=== PATIENT | female | born 1990 | race Caucasian/White ===

== ENCOUNTER → 2022-03-29 13:47 | Outpatient (REF) | payer BC, SELFPAY | LOC: ANHLAB 13:47 | PROVIDERS: PCP Internal Medicine; Visit Provider Surgery Plastic and Reconstructive Surgery | DX: D22.0 Melanocytic nevi of lip (principal); D22.5 Melanocytic nevi of trunk; D22.4 Melanocytic nevi of scalp and neck | CPT/HCPCS: 88305 ==

== ENCOUNTER 2025-04-11 13:09 | Inpatient (IN) | payer OTHER, SELFPAY ==
[2025-04-11] VITALS (75 sets, daily range): BP systolic 88–152; BP diastolic 44–120; PULSE 70–191; RESP 18; TEMP 36.3–36.6; O2SAT 73–100; BMI 41.1
--- OUTSIDE RECORDS SUMMARY | 2025-04-11 15:24 | XMS_ITS | Clinical Summary ---
Author Organization [facility] [employer] Address [address] [place] [address] Care Team Providers Care Leadlighter Name Role Phone Arcadio Espinoza MD Primary Care Provi [facility] Source Comments [facility] [employer]non-owned Affiliates and Associated Physician Practices is amultiple site organization consisting of ambulatory clinics and hospital sitesin [place], [place], [place] and [place]. This disclosure is being madepursuant to the Care Everywhere program and may not contain all information available regarding this patient. Last updated 18.[facility] [employer] Allergies No known active allergies Medications * Be aware that medications may not be up to date on this document. Alwaysverify current medications with the patient. Vit-DSS-Fe Fum-FA ( vitamin with iron) tabletIndicati ons: Take 1 (one) tablet by mouth once daily Reasons: Active levothyroxine (Synthroid) 50 MCG tabletIndicati ons:Hypothyroi dism Take 1 (one) tablet by mouth daily before breakfast Reasons: Underactive Thyroid Active metoclopramide (Reglan) 10 MG tablet Take 1 (one) tablet by mouth as needed for Nausea/Vomiting Activ e sertraline (Zoloft) 100 MG tabletIndicati ons:Generalize d Anxiety Disorder Take 1 (one) tablet by mouth once daily Reasons: Generalized Anxiety Disorder Active liothyronine (Cytomel) 5 MCG tabletIndicati ons:Hypothyroi dism Take 1 (one) tablet by mouth once daily Reasons: Underactive Thyroid Active famotidine (Pepcid) 40 MG tabletIndicati ons:Gastroesop hageal Reflux Disease Take 1 (one) tablet by mouth once daily Reasons: Gastroesophageal Reflux Disease Active calcium carbonate (Tums) 500 MG chew tabletIndicati ons:Heartburn Take 2 (two) tablets by mouth daily with food Reasons: Heartburn Active Active Problems Problem Noted Date Diagnosed Date Advanced maternal age in multigravida, first tri mester 10/14/2024 BMI 33.0-33.9,adult 10/14/2024 Obesity affecting in first trimester 1 12/15/2023 Thyroid disease during in first trimes ter 10/14/2024 Estimated Date of Delivery Comme nts Yes 04/26/2025 Based on last me nstrual period of 07/20/2024 Encounters Date Type Department Care Team Description 01/13/2025 1:38 PM CDT - 01/13/2025 11:59 PM CDT Hospital Encounter [facility] [address] [place] [address] Jade Suggs MD Discharge Disposition: Home or Self Care from Last 3 Months Social History Tobacco Use Types Packs/Day Years Used Date Smoking Tobacco: Never Assessed Estimated Date of Delivery Comme nts Yes 04/26/2025 Based on last me nstrual period of 07/20/2024 Sex and Gender Information Value Date Recorded Sex Assigned at Not on file Legal Sex Female 12:04 PM CDT Gender Identity Not on file Sexual Orientation Not on file Last Filed Vital Signs Vital Sign Reading Time Taken Comments Blood Pressure 124/66 01/13/2025 2:20 PM CDT Pulse 89 01/13/2025 2:20 PM CDT Temperature 36.6 C (97.8 F) 06/24/2014 5:40 PM CDT Respiratory Rate 16 06/24/2014 5:40 PM CDT Oxygen Saturation 100% 06/24/2014 5:40 PM CDT Inhaled Oxygen Concentration - - Weight 107.5 kg (237 lb) 01/13/2025 2:20 PM CDT Height 165.1 cm (5' 5) 12/09/2024 1:39 PM FOREST OFFICER Body Mass Index 39.44 12/09/2024 1:39 PM FOREST OFFICER Plan of Treatment Health Maintenance Due Date Last Done Comments PAP SMEAR 1988 HIV SCREENING 2003 HEPATITIS C SCREENING 11/16/2006 DTAP/TDAP/TD VACCINES (1 - Tdap) 2007 HEPATITIS B VACCINE (1 of 3 - 19+ 3-dose series) 2007 COVID-19 VACCINE ( - season) 2024 DEPRESSION SCREENING 11/04/2024 OB-ONE HOUR GLUCOSE 01/18/2025 OB-TDAP CURRENT 01/25/2025 06/10/2012 OB-RHOGAM INJECTION 02/01/2025 OB-GROUP B STREP SCREEN 03/22/2025 INFLUENZA VACCINE (Season Ended) 2025 08/04/2020, 08/04/2019, 08/04/2018, Additional history exists ZOSTER VACCINE (1 of 2) 2038 HIB VACCINE Aged Out No longer eligi ble based on patient's age to complete this topic HPV VACCINE Aged Out No longer eligi ble based on patient's age to complete this topic MENINGOCOCCAL (Group B) VACCINE SHARED DECISION-MAKING Aged Out No longer eligible based on patient's age to complete this topic MENINGOCOCCAL GROUPS A/C/Y/W VACCINE Aged Out No longer eligible based on patient's age to complete this topic PNEUMOCOCCAL VACCINE Aged Out No long er eligible based on patient's age to complete this topic Respiratory Syncytial Virus (RSV) Vaccine Pt: or over 60 yrs (No Doses Required) Completed Procedures Procedure Name Priority Date/Time Associated Diagnosis Comments SONOGRAM - COMPLETE Routine 01/13/2025 2:33 PM CDT Subclinical hypothyroidism Antepartum multigravida of advanced maternal age Anxiety 25 weeks gestation of from Last 3 Months Results * SONOGRAM - COMPLETE (01/13/2025 2:33 PM CDT) Linked Results Indication ======== Incomplete Anatomy Screen AMA 36, Hypothyroidism, Obesity class I, Anxiety History ====== OB History 2. Para 1 [id number] 1. live 2018. Gest. age 39 w + 0 d. Weight 2,721 g. Sex of child: female. Details: Vaginal delivery Lab Tests Test Date Result NIPT Low risk, Female Maternal Assessment Physical Exam Height 165 cm, 5 ft 5 in. Weight 108 kg, 237 lb. Initial weight 83 kg, 182 lb. BMI 39.44 kg/m . Initial BMI 30.29 kg/m . Weight gain 25 kg, 55 lb Method ====== Transabdominal ultrasound. View: Sufficient ========= Martínez . Number of fetuses: 1 Dating ====== Date Details Gest. age BEKAH LMP 07/20/2024 25 w + 2 d 04/26/2025 U/S 01/13/2025 based upon AC, BPD, Femur, HC 25 w + 5 d 04/23/2025 Assigned dating based on the LMP, selected on 10/14/2024 25 w + 2 d 04/26/2025 General Evaluation Cardiac activity present. FHR 135 bpm. Presentation: cephalic Placenta: Placental site: posterior Amniotic fluid: Amount of AF: normal. MVP 5.5 cm Biometry BPD 64.7 mm 26w 1d 71% Hadlock HC 242.7 mm 26w 2d 66% Hadlock AC 202.6 mm 24w 6d 28% Hadlock Femur 46.5 mm 25w 3d 42% Hadlock Humerus 39.6 mm 24w 1d 11% Diamond HC / AC 1.20 16w 3d Hadlock Weight Calculation: EFW 793 g 40% Hadlock EFW (lb,oz) 1 lb 12 oz EFW by Hadlock ([id number]) appropriate Growth Overview Exam date GA BPD (mm) HC (mm) AC (mm) FL (mm) HL (mm) EFW (g) 12/09/2024 20w 2d 49.5 77% 182.7 59% 156 60% 35 69% 31.1 54% 383 76% 01/13/2025 25w 2d 64.7 71% 242.7 66% 202.6 28% 46.5 42% 39.6 11% 793 40% Anatomy The following structures appear normal: Head / Neck Cranium. Lateral ventricles. Face Lips. Heart / Thorax 9-jnzfjr-gschvag view. Bicaval view. Abdomen Stomach. Kidneys. Bladder. The following structures were documented previously: Head / Neck Choroid plexus. Midline falx. Cavum septi pellucidi. Cerebellum. Cisterna magna. Face Profile. Nose. Orbits. Heart / Thorax 4-chamber view. RVOT view. LVOT view. 3-vessel view. Situs. Aortic arch view. Ductal arch view. Great vessels. Right lung. Left lung. Diaphragm. Abdomen Cord insertion. Bowel. Genitals. Spine Cervical spine. Thoracic spine. Lumbar spine. Sacral spine. Extremities / Skeleton Arms. Hands. Legs. Feet. sex: female. Impression ========= Single, live, intrauterine at 25w 2d size is appropriate Amniotic fluid volume: normal No major malformations were seen within the limitations of ultrasound Complete anatomic survey Follow-up ======== Growth US at 30-32 weeks, or as clinically indicated. Coding ====== Procedures [id number]: US Preg Uterus Follow Up [facility] [place] PACS Anatomical Region Laterality Modality Other 01/13/2025 2:33 PM CDT Saida Adams MD [facility] ORDERABLES Edited Result - Final from Last 3 Months Insurance [facility] Care Teams Leadlighter Relationship Specialty Start Date End Date Arcadio Espinoza MD PCP - General Internal Medicine 06/26/17
--- OUTSIDE RECORDS SUMMARY | 2025-04-11 15:24 | XMS_ITS | Encounter Summary ---
Author Organization [facility] Address [address] [place] [address] Phone Care Team Providers Care Therapy Director Name Role Phone Arcadio Espinoza MD Primary Care Provi leena Vicente Arroyo Primary Care Provider Encounter Details Date Type Department Care Team (Late st Contact Info) Description 10/16/2017 Orders Only [facility] ProviderSirena MD [address] [phone] Social History Tobacco Use Types Packs/Day Years Used Date Smoking Tobacco: Never Smokeless Tobacco: Never Alcohol Use Standard Drinks/Week Comments No 0 (1 standard drink = 0.6 oz pur e alcohol) Comments No Sex and Gender Information Value Date Recorded Sex Assigned at Not on file Legal Sex Female 6:47 PM SERVICE DESK TEAM LEAD Gender Identity Not on file Sexual Orientation Not on file documented as of this encounter Plan of Treatment Not on file documented as of this encounter Procedures Procedure Name Priority Date/Time Associated Diagnosis Comments DISCHARGE LABORATORY CUMULATIVE REPORT 10/16/2017 12:00 AM SERVICE DESK TEAM LEAD documented in this encounter Results * DISCHARGE LABORATORY CUMULATIVE REPORT (10/16/2017 12:00 AM SERVICE DESK TEAM LEAD) Narrative 10/16/2017 12:00 AM SERVICE DESK TEAM LEAD Ordered by an unspecified provider. Historical Provider LAB BLOOD ORDERABLES Margie l Result documented in this encounter Visit Diagnoses Not on filedocumented in this encounter Additional Health Concerns Infection Onset Date Last Indicated Resolved Time COVID: Suspected 02/16/2022 02/16/2022 02/16/2022 9:43 AM CDT COVID: Suspected 10/24/2023 10/24/2023 10/25/2023 3:07 AM SERVICE DESK TEAM LEAD documented as of this encounter Care Teams Therapy Director Relationship Specialty Start Date End Date Arcadio Espinoza MD PCP - General 02/01/17 08/22/22 Vicente Arroyo PA [address] [place] [address] [place] [id number] PCP - General Internal Medicine 08/23/22 documented as of this encounter
--- OUTSIDE RECORDS SUMMARY | 2025-04-11 15:24 | XMS_ITS | Clinical Summary ---
Author Organization [facility] Address [address] [place] [address] Care Team Providers Care Stone Fabricator Name Role Phone Armen oRyal MD Primary Care Provider [phone] Allergies No known active allergies Medications scopolamine (Transderm-Scop) 1 mg/72 hr patch Apply 1 Patch to skin as directed see administration instructions. Every 72 hrs 5 Patch 3 024 Active metoclopramide HCl (REGLAN) 10 mg tablet Take 1 Tablet (10 mg) by mouth 3 times daily as needed for Nausea/Emesis. 30 Tablet 3 024 Active sertraline (Zoloft) 25 mg tablet Take 3 Tablets (75 mg) by mouth daily. 270 Tablet 3 024 Active promethazine (PHENERGAN) 25 mg Suppository Insert 1 Suppository (25 mg) by rectum every 12 hours as needed for Nausea/Emesis. 10 Suppository 2 024 Active levothyroxine 50 mcg tabletIndications :Acquired hypothyroidism Take 1 Tablet (50 mcg) by mouth daily. 100 Tablet 3 024 Active sertraline (ZOLOFT) 100 mg tabletIndications :Anxiety Take 1 Tablet (100 mg) by mouth daily. 100 Tablet 3 024 Active Active Problems Patient Care Coordination No te Formatting of this note migh t be different from the original. 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 Hypercholesterolemia 12/31/2023 Palpitations 07/23/2023 Overview (10/31/2023): Last Assessment & Plan: Acute problem-this is a recurring problem with the last episode several years ago-this could likely be related to increased anxiety versus PTOT Ordered ECG poc: ECG results show NSR with ventricular rate of 100 Low-voltage QRS-QRS duration 90 30 day Holter monitor ordered Encouraged to practice relaxation techniques Stay hydrated-drink plenty of fluid Continue to monitor Postural lightheadedness 07/23/2023 Overview (10/31/2023): Last Assessment & Plan: Acute problem-onset 1-2 days, patient had been ill with a sinus drainage and cough, with negative COVID results-however lightheadedness has not changed Orthostatic vital signs completed-BP lying 122/80 heart rate 112, BP sitting 142/88 heart rate 84, BP standing 140/94 heart rate 104 Encouraged to increase fluid intake Change positions slowly Continue to monitor Labs ordered-CBC, CMP, TSH, T4, T3, hCG quantitative Tachycardia 07/23/2023 Overview (10/31/2023): Last Assessment & Plan: Acute problem-this is a recurring problem. Patient has a history of sinus tachycardia back in 2017-ECG from 2017 in EMR was reviewed by me this visit Did assess for postural orthostatic tachycardia-patient's heart rate did elevate 90-120 beats per minute in a standing position for 3 minutes-this could be likely related to POTS versus anxiety versus panic attacks Ordered a 30 day Holter monitor We will continue to monitor Vitamin D deficiency 07/23/2023 Overview (10/31/2023): Last Assessment & Plan: Chronic problem-poorly controlled with current regimen Patient states she was not taking vitamin-D Last vitamin-D level known 25 I discussed this with patient and informed her that if her vitamin-D level is at extreme low levels, this can mimic and cause palpitations We will restart ergocalciferol 50,000 units-take 1 capsule weekly-refills sent We will continue to monitor Plan to recheck vitamin-D level in 2 months Acquired hypothyroidism 08/23/2022 Family history of colon cancer 05/26/2021 Overview (10/31/2023): Added automatically from request for surgery [id number] Biliary colic 07/08/2019 Overview (10/31/2023): Added automatically from request for surgery [id number] Common bile duct stone 07/08/2019 Overview (10/31/2023): Added automatically from request for surgery [id number] Anxiety 01/06/2015 Encounters Date Type Department Care Team Description 03/25/2025 External Device Data [facility] ABSTRACTION Provider, Abstract 03/23/2025 External Device Data [facility] ABSTRACTION Provider, Abstract 02/16/2025 External Device Data [facility] ABSTRACTION Provider, Abstract 01/20/2025 External Device Data [facility] ABSTRACTION Provider, Abstract 01/20/2025 External Device Data [facility] ABSTRACTION Provider, Abstract 01/09/2025 External Device Data [facility] ABSTRACTION Provider, Abstract from Last 3 Months Immunizations Immunization Administration Dates Next Due (ADACEL/BOOSTRIX)(10 YR UP) TDAP VACCINE, 0.5ML, IM 06/10/2012 (INFANRIX)(6 WKS-6 YRS) DIPT HERIA, TETANUS TOXOIDS, AND ACCELLULAR PERTUSSIS VACCINE (DTAP), 0.5 ML IM 06/10/2012,03/30/1994,05/24/1989,03/21,01/17/1989 (M-M-R II/PRIORIX)(12 MO UP) MEASLES, MUMPS AND RUBELLA VIRUS VACCINE, 0.5 ML IM/SUBCUT 06/10/2012,03/30/1994,02/21/1990 (MENACTRA)(9 MO-55 YR) MENIN GOCOCCAL POLYSACCHARIDE A, C, Y AND W-135 DIPTHERIA TOXOID CONJUGATE VACCINE, (PF), 0.5ML, IM 06/10/2012 (RECOMBIVAX HB/ENGERIX-B)(0- 19 YRS) HEPATITIS B VACCINE 5 MCG/0.5 ML OR 10 MCG/0.5 ML PED OR ADOL 3 DOSE (PF), IM 07/28/1999,01/23/1999,12/22/1998 (VARIVAX)(12 MOS UP)VARICELL A VIRUS VACCINE (PF) 0.5 ML, SUB CUT 06/10/2012 Hemophilus influenza b vacci ne (Hib), HbOC conjugate (4 dose schedule), for intramuscular use 06/16/1990 Hepatitis A Vaccine 06/10/2012 Hepatitis B Vaccine 06/03/2012 Influenza Seasonal Unspecifi ed Formulation IM 08/18/2014,06/10/2012 Influenza Virus Vaccine, Spl it Virus (Incl. Purified Surface antigen)-retired CODE 06/27/2011 Influenza, Unspecified Formulation 08/04,08/04/2019,08/04/2018,08/27 Meningococcal Polysaccharide Vaccine, Serogroups A, C, Y, W-135, quadrivalent (Mpsv4) SQ 06/10/2012 Poliovirus Vaccine Live Oral 03/30/1994, 06/16/1990,03/21/1989,01/14 Family History Medical History Relation Name Comments Colon Cancer Father Diabetes Mother Breast Cancer Paternal Aunt Colon Cancer Paternal Uncle Ovarian Cancer Neg Hx Uterine Cancer Neg Hx Relation Name Status Comments Father Mother Alive Paternal Aunt Alive Paternal Uncle Alive Social History Tobacco Use Types Packs/Day Years Used Date Smoking Tobacco: Never Passive Smoke Exposure: Never Smokeless Tobacco: Never Tobacco Cessation:Counseling Given: No Alcohol Use Standard Drinks/Week Comments Yes 1.7 (1 standard drink = 0.6 oz p ure alcohol) SOCIAL Comments Unknown Sex and Gender Information Value Date Recorded Sex Assigned at Not on file Legal Sex Female 11:23 AM INVESTMENT ANALYST Gender Identity Not on file Sexual Orientation Not on file Last Filed Vital Signs Vital Sign Reading Time Taken Comments Blood Pressure 120/81 06/17/2024 2:09 PM CDT Pulse 78 06/17/2024 2:09 PM CDT Temperature 37.1 C (98.7 F) 10/31/2023 2:17 PM INVESTMENT ANALYST Respiratory Rate - - Oxygen Saturation 97% 06/17/2024 2:09 PM CDT Inhaled Oxygen Concentration - - Weight 75.8 kg (167 lb) 06/17/2024 2:09 PM CDT Height 165.1 cm (5' 5) 06/17/2024 2:09 PM CDT Body Mass Index 27.79 06/17/2024 2:09 PM CDT Plan of Treatment Health Maintenance Due Date Last Done Comments HPV/Cotest (21-29) 2009 CERVICAL CANCER SCREENING 2018 HPV/Cotest (30-65) 2018 PAP SMEAR 2018 DTAP/TDAP/TD VACCINES (7 - Td or Tdap) 06/10/2022 06/10/2012, 06/10/2012, 03/30/1994, Additional history exists INFLUENZA VACCINE (#1) 2024 08/18/2014, 2011 Preventative Visit- Commercial 11/04/2024 06/17/2024, 01/10/2023 COLORECTAL SCREENING 06/12/2025 06/12/2023, 06/12/2023, 06/05/2021 Pre-Diabetes and Diabetes Screening 06/15/2027 06/15/2024, 12/26/2023 HEPATITIS B VACCINES Completed 06/03/2012, 07/28/1999, 01/23/1999, Additional history exists HPV VACCINES Aged Out No longer eligi ble based on patient's age to complete this topic Procedures Procedure Name Priority Date/Time Associated Diagnosis Comments HEMOGLOBIN A1C Routine 06/15/2024 8:30 AM CDT from Last 3 Months or Most Recently Relevant to Health Maintenance Results * HEMOGLOBIN A1C (06/15/2024 8:30 AM CDT) HEMOGLOBIN A1C 5.4 <5.7 % of total Hgb [facility] Comment: For the purpose of screening for the presence of diabetes: <5.7% Consistent with the absence of diabetes 5.7-6.4% Consistent with increased risk for diabetes (prediabetes) > or =6.5% Consistent with diabetes This assay result is consistent with a decreased risk of diabetes. Currently, no consensus exists regarding use of hemoglobin A1c for diagnosis of diabetes in children. According to [place] Diabetes Association (ADA) guidelines, hemoglobin A1c <7.0% represents optimal control in non- diabetic patients. Different metrics may apply to specific patient populations. Standards of Medical Care in Diabetes(ADA). This test was performed on the [employer] kg c503 platform. Effective 01/20/24, a change in test platforms from the [employer] Case Assistant to the [employer] kg c503 may have shifted HbA1c results compared to historical results. Based on laboratory validation testing conducted at [facility], the [employer]a platform relative to the [employer] platform had an average increase in HbA1c value of < or = 0.3%. This difference is within accepted variability established by the National Glycohemoglobin Standardization Program. Note that not all individuals will have had a shift in their results and direct comparisons between historical and current results for testing conducted on different platforms is not recommended. FASTING:YES FASTING: YES [facility] [address] [place] [address] 06/15/2024 8:30 AM CDT 06/15/2024 8:30 AM CDT us Historical Provider CHEMISTRY ORDERABLES Final R esult [facility] [phone] [address] [place] [address] from Last 3 Months or Most Recently Relevant to Health Maintenance Insurance [facility] OPEN ACCESS HMO Care Teams Stone Fabricator Relationship Specialty Start Date End Date Armen Royal MD PCP - General Internal Medicine 01/06/15
--- OUTSIDE RECORDS SUMMARY | 2025-04-11 15:24 | XMS_ITS | Referral Summary ---
Author Organization [facility] Medical Office Building A Address [address] [place] [address] Care Team Providers Care Performance Engineer Name Role Phone Vicente Arroyo Primary Care Provider Allergies No known active allergies Medications sertraline (ZOLOFT) 100 mg tablet Take 1 tablet (100 mg total) by mouth daily 90 tablet 4 07/24/2023 Active Active Problems Problem Noted Date Diagnosed Date Postural lightheadedness 07/23/2023 Assessment & Plan (07/23/2023 12:15 PM CDT): Acute problem-onset 1-2 days, patient had been ill with a sinus drainage and cough, with negative COVID results-however lightheadedness has not changed Orthostatic vital signs completed-BP lying 122/80 heart rate 112, BP sitting 142/88 heart rate 84, BP standing 140/94 heart rate 104 Encouraged to increase fluid intake Change positions slowly Continue to monitor Labs ordered-CBC, CMP, TSH, T4, T3, hCG quantitative Palpitations 07/23/2023 Assessment & Plan (07/23/2023 12:25 PM CDT): Acute problem-this is a recurring problem with the last episode several years ago-this could likely be related to increased anxiety versus PTOT Ordered ECG poc: ECG results show NSR with ventricular rate of 100 Low-voltage QRS-QRS duration 90 30 day Holter monitor ordered Encouraged to practice relaxation techniques Stay hydrated-drink plenty of fluid Continue to monitor Tachycardia 07/23/2023 Assessment & Plan (07/23/2023 12:12 PM CDT): Acute problem-this is a recurring problem. Patient [...] continue to monitor Vitamin D deficiency 07/23/2023 Assessment & Plan (07/23/2023 12:22 PM CDT): Chronic problem-poorly controlled with current regimen Patient [...] to recheck vitamin-D level in 2 months Encounter for screening for malignant neoplasm o f colon 05/21/2023 Acquired hypothyroidism 08/23/2022 Family history of colon cancer 05/26/2021 Overview (05/26/2021): Added automatically from request for surgery [id number] Biliary colic 07/08/2019 Overview (07/08/2019): Added automatically from request for surgery [id number] Common bile duct stone 07/08/2019 Overview (07/10/2019): Added automatically from request for surgery [id number] Chronic pain due to trauma 03/20/2014 Overview (02/09/2017): Chronic pain due to trauma Depression 02/23/2013 Overview (02/06/2017): Depression Anxiety 02/23/2013 Overview (02/16/2022): Anxiety Assessment & Plan (07/23/2023 12:19 PM CDT): Chronic problem-poorly controlled with current regimen Continue Wellbutrin XL 300 mg daily Ordered buspirone 7.5 mg tablet-take 1 tablet t.i.d. p.r.n.-patient is encouraged to take 1 tablet 3 times a day scheduled for the first 2 days, then on day 3 start 1 tablet t.i.d. p.r.n. Follow-up in 2 weeks to evaluate for medication effectiveness Assessment & Plan (11/27/2017 8:[address] SUPERVISOR): Significant improvement with the addition of sertraline. Patient will continue current dose of 50 mg once daily. This medication has been approved by her OBGYN as she is actively trying to conceive. Assessment & Plan (10/16/2017 12:[address] SUPERVISOR): OBGYN prefers patient avoid Effexor during . We discussed treatment options at length. Patient feels as though she needs to be treated at the present time. She is adamant she does not have depression. She states she only has anxiety. She denies any depressive symptoms. SSRIs have been well studied during . Patient seems to have most of her trouble through the winter months. She is currently not and OBGYN may wish to taper this as she nears the end of her . I gave her script for sertraline 50 mg. She will start with a half a tablet for 1 week and increase to a full tablet thereafter. Patient has a history of effectiveness with SSRIs/SNRIs. We also discussed the use of BuSpar for anxiety. BuSpar as a category B and will be safe throughout . Patient wishes to trial BuSpar initially. If this controls her anxiety symptoms she will forego the sertraline. If this is ineffective she will proceed with sertraline as outlined above only after obtaining approval from her paper machine operator. I will see her back for close follow-up in 6 weeks. Certainly sooner if indicated. Resolved Problems Problem Noted Date Diagnosed Date Resolved Date Upper respiratory tract infection 10/14/2019 01/10/2023 Assessment & Plan (10/14/2019 3:[address] SUPERVISOR): Recommend fluids, rest, humidification if needed. She was instructed to call back if symptoms do not improved in a week, or if worsening ones arise. Education provided. The common cold or uri (upper respiratory infections) are uniformly caused by viruses.The use of antibiotics for these infections are discouraged in our day and age as a risk without much if any benefit,Increase fluids will help to thin the secretions.Over the counter meds/cold drugs do not cure this problem but can provide help in tolerating the illness.. Some find the decongestant meds helpful but many find them causing more complaints then they are worth. Cough meds come into play when you cannot control the cough. This comes into play especially at night when you are trying to sleep. Short term use of nasal decongestants are helpful (Afrin), especially at night. Using them at a full dose for more then 3 days is highly associated with your nasal passage relying on them, when this happens the nasal membranes will dilate the blood vessels within the nasal wall and weep secretions that plug up your nose. When this occurs it will take several days to return to normal. There is a place for nasal steroid during a cold as a way to help limit secretions and not lead to a nasal addition. Nasal dryness and subsequent bleeding then can occur at which time you will need to reduce or stop there use for the near future. Acute rhinitis 10/14/2019 01/10/2023 Assessment & Plan (10/14/2019 3:[address] SUPERVISOR): Nasal mucosa is erythematous and edematous. Instructed patient on importance of using a nasal spray such as Flonase two sprays each nostril once a day. Educated patient on ensuring during use the spray is to be inserted by the tip and point it towards the same side ear. Flonase can be purchased over the counter. Allergies can flare with the change of the weather/season or around harvest time. Patient instructed to follow up in office if symptoms worsen or persist. RUQ pain 09/09/2019 10/14/2019 Overview (09/09/2019): Added automatically from request for surgery [id number] School physical exam 11/27/2017 019 Assessment & Plan (11/27/2017 8:[address] SUPERVISOR): Varicella titer to be drawn today. Results will be called to patient. Forms have been signed. Originals handed back to the patient. Copy made to be scanned into electronic medical record. Other fatigue 10/16/2017 10/14/2019 Assessment & Plan (10/16/2017 12:[address] SUPERVISOR): Patient verbalized concerned that perhaps there was another etiology for her anxiety. I recommend we check a TSH, vitamin-D level and BMP. She should anticipate a call from me regarding these results within 3 days of having testing completed. We will have her back for follow-up in approximately 6 weeks. She may reach out to us in the interim with any additional questions or concerns. Immunizations Immunization Administration Dates Next Due DTaP 06/10/2012, 4,05/24/1989,03/21,01/17/1989 Flucelvax Influenza Quad 07/23/2023(Deferred: Charles klein Refused) Hep A, Adult 06/10/2012 Hep B Vaccine 06/03/2012,06/03/2012 Hep B, Adolescent or Pediatric 07/28/1999,1998,12/22/1998 Hib (HbOC) 06/16/1990 Influenza, Split 06/27/2011 Influenza, Trivalent, IM (MDV) 08/18/2014,2011 Influenza, Unspecified 07/23/2023(Deferr ed: Patient Refused),08/04/2020,08/04/2019, 019(Deferred: Patient Refused),08/04/2018,08/04/2018(Deferre d: Patient Refused),08/27/2017 MMR 06/10/2012,03/30/1994,02/21/1990 Meningococcal MCV4P (Menactra) 06/10/2012 Meningococcal Polysaccharide (Menomune) 06/10/2012 OPV 03/30/1994, 0,03/21/1989,01/14 Td, adsorbed 05/20/2003 Tdap 06/10/2012 Varicella 06/10/2012 Social History Tobacco Use Types Packs/Day Years Used Date Smoking Tobacco: Never Smokeless Tobacco: Never Tobacco Cessation:Counseling Given: Not Answered Alcohol Use Standard Drinks/Week Comments No 0 (1 standard drink = 0.6 oz pur e alcohol) AUDIT-C Answer Date Recorded Q1: How often do you have a drink containing alcohol? Never 06/12/2023 Q2: How many drinks containi ng alcohol do you have on a typical day when you are drinking? Patient does not drink Q3: How often do you have si x or more drinks on one occasion? Never 06/12/2023 PHQ-2 Answer Date Recorded PHQ-2 Total Score (If total score is 3 or more points, staff should administer the PHQ-9) 0 10/24/2023 Personal Safety Answer Date Recorded Have you ever been in or are you currently in a harmful physical or emotional relationship or is someone making you feel afraid or unsafe? Denies 06/12/2023 Comments No Sex and Gender Information Value Date Recorded Sex Assigned at Not on file Legal Sex Female 6:[address]VISOR Gender Identity Not on file Sexual Orientation Not on file Occupation Industry Job Start Date Job End Date Nurse Not on file Not on file Not on file Student (Masters in Nursing) Not on file Not on file Not on file Last Filed Vital Signs Vital Sign Reading Time Taken Comments Blood Pressure 102/60 10/24/2023 10:[address] SUPERVISOR Pulse 85 10/24/2023 10:[address] SUPERVISOR Temperature 37.3 C (99.2 F) 10/24/2023 10:[address] SUPERVISOR Respiratory Rate 16 10/24/2023 10:[address] SUPERVISOR Oxygen Saturation 96% 10/24/2023 10:[address] SUPERVISOR Inhaled Oxygen Concentration - - Weight 83 kg (183 lb) 10/24/2023 10:[address] SUPERVISOR Height 165.1 cm (5' 5) 10/24/2023 10:[address] SUPERVISOR Body Mass Index 30.45 10/24/2023 10:[address] SUPERVISOR Plan of Treatment Not on file Procedures Procedure Name Priority Date/Time Associated Diagnosis Comments COLONOSCOPY 06/12/2023 9:06 AM CDT from Last 3 Months or Most Recently Relevant to Health Maintenance Results * COLONOSCOPY (06/12/2023 9:06 AM CDT) Anatomical Region Laterality Modality Other Narrative Procedure Note Yogi Thompson MD - 06/12/2023 9:06 AM CDT [facility] Endoscopy Lab Patient Name: Shayy Colby Procedure Date: 06/12/2023 9:06 AM Date of : 1990 Admit Type: Outpatient Age: 32 Gender: Female Note Status: Finalized Attending MD: Yogi Thompson M.D. Procedure Date: 06/12/2023 Procedure: Colonoscopy Indications: Family history of hereditary nonpolyposiscolorectal cancer Providers: Yogi Thompson M.D., NENA Gamboa (Anesthesia Staff), Jamilah Quick RN, Deepa Carter,Peer Tutor Referring MD: Vicente Arroyo PA-C Medicines: Monitored Anesthesia Care Complications: No immediate complications. Estimated Blood Loss: Estimated blood loss: none. Procedure: Pre-Anesthesia Assessment: - Airway Examination: normal oropharyngeal airwayand neck mobility. - Respiratory Examination: clear to auscultation. - ASA Grade Assessment: II - A patient with mild systemic disease. - After reviewing the risks and benefits, thepatient was deemed in satisfactory condition to undergo the procedure. - The risks and benefits of the procedure and the sedation options and risks were discussed with the patient. All questions were answered and informed consent was obtained. After I obtained informed consent, the scope was passed under direct vision. Throughout theprocedure, the patient's blood pressure, pulse, and oxygen saturations were monitored continuously. The scopewas passed under direct vision. The Colonoscope was introduced through the anus and advanced to the the cecum, identified by the appendiceal orifice, ileocecal valve and palpation. The colonoscopy was performed with ease. The patient tolerated the procedure well. The quality of the bowelpreparation was good. The quality of the bowel preparation was evaluated using the BBPS ([place] Bowel Preparation Scale) with scores of: Right Colon = 2 (minoramount of residual staining, small fragments of stooland/or opaque liquid, but mucosa seen well), TransverseColon = 2 (minor amount of residual staining, small fragments of stool and/or opaque liquid, but mucosa seen well) and Left Colon = 2 (minor amount of residual staining, small fragments of stool and/or opaque liquid, but mucosa seen well). The totalBBPS score equals 6. The quality of the bowelpreparation was good. The bowel preparation used was bisacodyl tablets via split dose instruction. Bowel prep was administered using a split dose. Findings: The perianal and digital rectal examinations were normal. The colon (entire examined portion) appeared normal. The retroflexed view of the distal rectum and anal verge was normaland showed no anal or rectal abnormalities. Impression: - The entire examined colon is normal. - The distal rectum and anal verge are normal on retroflexion view. - No specimens collected. Recommendation: - Discharge patient to home (ambulatory). - Repeat colonoscopy in 2 years for screeningpurposes. Procedure Code(s): --- Professional --- 91971, Colonoscopy, flexible; diagnostic, including collection of specimen(s) by brushing or washing,when performed (separate procedure) Diagnosis Code(s): --- Professional --- Z80.0, Family history of malignant neoplasm of digestive organs CPT copyright 2020 [employer]. All rights reserved. The codes documented in this report are preliminary and upon facilities specialist reviewmay be revised to meet current compliance requirements. Electronically signed by Yogi Thompson MD Yogi Thompson M.D. 06/12/2023 9:50:06 AM Number of Addenda: 0 Note Initiated On: 06/12/2023 9:06 AM Yogi Thompson MD ENDOSCOPY PROCEDURES Final Resul t from Last 3 Months or Most Recently Relevant to Health Maintenance Insurance [employer] OOS [employer] Advance Directives For more information, please contact: [phone] * Full Code (Latest Code Status on File) Date Activated Date Inactivated Comments 07/10/2019 1:32 PM 07/14/2019 10:58 PM Care Teams Performance Engineer Relationship Specialty Start Date End Date Vicente Arroyo PA [address] [place] [address] PCP - General Internal Medicine 08/23/22
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
--- OUTSIDE RECORDS SUMMARY | 2025-04-11 15:24 | XMS_ITS | Encounter Summary ---
Author Organization [facility] Address [address] [place] [address] Phone Care Team Providers Care Art Objects Supervisor Name Role Phone Arcadio Espinoza MD Primary Care Provi leena Vicente Arroyo Primary Care Provider Encounter Details Date Type Department Care Team (Late st Contact Info) Description 11/27/2017 Orders Only [facility] ProviderSirena MD [address] [phone] Social History Tobacco Use Types Packs/Day Years Used Date Smoking Tobacco: Never Smokeless Tobacco: Never Alcohol Use Standard Drinks/Week Comments No 0 (1 standard drink = 0.6 oz pur e alcohol) Comments No Sex and Gender Information Value Date Recorded Sex Assigned at Not on file Legal Sex Female 6:47 PM DIGITAL CARTOGRAPHIC TECHNICIAN Gender Identity Not on file Sexual Orientation Not on file 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 Historical Provider LAB BLOOD ORDERABLES Margie l Result documented in this encounter Visit Diagnoses Not on filedocumented in this encounter Additional Health Concerns Infection Onset Date Last Indicated Resolved Time COVID: Suspected 02/16/2022 02/16/2022 02/16/2022 9:43 AM CDT COVID: Suspected 10/24/2023 10/24/2023 10/25/2023 3:07 AM DIGITAL CARTOGRAPHIC TECHNICIAN documented as of this encounter Care Teams Art Objects Supervisor Relationship Specialty Start Date End Date Arcadio Espinoza MD PCP - General 02/01/17 08/22/22 Vicente Arroyo PA [address] [place] [address] [address] [place] [id number] PCP - General Internal Medicine 08/23/22 documented as of this encounter
[2025-04-11 15:32] LABS: Basophils Percent Auto 0.2 % (0.2-1.2); Eosinophils Percent Auto 0.3 % (0-4.4); Hematocrit 35.2 % (37.0-47.0); Immature Granulocyte Absolute 0.07 K/mm3 (0.00-0.031); Immature Granulocyte Percent A 0.5 % (0-0.5); Lymphocytes Absolute Auto 1.87 K/mm3 (0.9-3.2); Lymphocytes Percent Auto 14.5 % (18.3-44.2); Mean Corpuscular HGB Conc 31.3 g/dl (32-36); Mean Corpuscular Volume 83.2 fl (80-100); Mean Platelet Volume 11.7 fl (7.4-10.4); Monocytes Absolute Auto 0.9 K/mm3 (0.1-0.6); Monocytes Percent Auto 6.7 % (2.6-8.5); Neutrophils Absolute Auto 10.1 K/mm3 (1.3-6.7); Neutrophils Percent Auto 77.8 % (45.5-73.1); Platelet Count Result 300 k/mm3 (150-375); Red Blood Count 4.23 M/mm3 (4.2-5.4); Red Cell Distribution Width 13.1 % (11.5-14.5); White Blood Count 12.9 K/mm3 (4.5-10.0)
[2025-04-11] MEDS: fentaNYL CITRATE INJ (*CRX) 100 MCG/2 ML VIAL IV PUSH (15:35)
[2025-04-11] MEDS: AMPICILLIN 2 GM/NS 100 ML 2 GM/100 ML BAG IVPB (15:37)
[2025-04-11] MEDS: LACTATED RINGERS 1,000 ML 125 ML IV CONT ×2 (15:37→16:13)
--- NOTE | 2025-04-11 16:12 | P.PNAN_ITS ---
Anes - Eval Pre Procedure Procedure: labor pain management Date/Time: 04/11/25 16:12 Surgeon: Bryan Preop Diagnosis: pain during labor Pre Op Diagnosis: Contractions Patient Data Age: 34 Gender: F Height: 1.65 m Weight: 112 kg Last Vital Signs Pulse 93 04/11/25 16:00 BP 144/78 H 04/11/25 16:00 Allergies Allergy/AdvReac Type Severity Reaction Status Date / Time No Known Allergies Allergy Verified 04/07/25 10:25 Home Medications ?Medication ?Instructions ?Recorded ?Confirmed ?Type levothyroxine 50 mcg tablet 50 mcg PO DAILY 09/10/24 04/07/25 History liothyronine 5 mcg tablet 5 mcg PO DAILY 09/10/24 04/07/25 History sertraline 100 mg tablet 100 mg PO Q24H 10/07/24 04/07/25 History docosahexaenoic acid 200 mg 200 mg PO DAILY 01/26/25 04/07/25 History capsule ( DHA) omeprazole magnesium 2.5 mg oral 10 mg PO DAILY 01/26/25 04/07/25 History suspension,delayed release (Prilosec) Laboratory Tests 04/11/25 15:27 WBC 12.9 H K/mm3 (4.5-10.0) RBC 4.23 M/mm3 (4.2-5.4) Hgb 11.0 L g/dL (12.0-15.0) Hct 35.2 L % (37.0-47.0) MCV 83.2 fl (80-100) MCH 26.0 pg (26-34) MCHC 31.3 L g/dl (32-36) RDW 13.1 % (11.5-14.5) Plt Count 300 k/mm3 (150-375) MPV 11.7 H fl (7.4-10.4) Immature Gran % (Auto) 0.5 % (0-0.5) Neut % (Auto) 77.8 H % (45.5-73.1) Lymph % (Auto) 14.5 L % (18.3-44.2) [place] % (Auto) 6.7 % (2.6-8.5) Eos % (Auto) 0.3 % (0-4.4) Baso % (Auto) 0.2 % (0.2-1.2) Lymph # (Auto) 1.87 K/mm3 (0.9-3.2) [place] # (Auto) 0.9 H K/mm3 (0.1-0.6) Eos # (Auto) 0.0 K/mm3 (0-0.3) Baso # (Auto) 0.0 K/mm3 (0.0-0.1) Abs Immat Gran (auto) 0.07 H K/mm3 (0.00-0.031) Absolute Neuts (auto) 10.1 H K/mm3 (1.3-6.7) Absolute Nucleated RBC 0.000 K/mm3 (0.0-0.012) Nucleated RBC % 0.0 % (0.0-0.2) HIV 1&2 Ab/P24 Ag 4thGn Pending Blood Type O Positive Antibody Screen Pending Patient hx anesthesia problems: none Family hx anesthesia problems: none Results Review: All pre-operative results and documents have been reviewed as part of the pre- operative evaluation. [facility] Past Medical History Medical History Hypothyroid Healthy female adult Surgical History Surgical History History of cholecystectomy No pertinent past surgical history Family History Family History Grandparent No problems noted. Father Carcinoma of colon Mother Diabetes mellitus Social History Social History Smoking status: Never smoker Alcohol intake: never Substance use: never Substance use type: does not use Do You Feel Safe in your Home?: Yes Lack of Transportation: No Lack of Food: Never True Current Housing: I Have Housing Concerned About Future Housing: Decline to Answer Difficulty Paying Gas/Electric Bills: Decline to Answer Difficulty Paying for Meds: Decline to Answer Currently Unemployed: Decline to Answer Education: Master's Degree or Higher Difficulty w/ Childcare or Family Care: Decline to Answer Living arrangements: with family Occupation/Education: occupation Additional occupation/education comments: rn Gender identity (if verbalized by the patient): Female Sexual Orientation (if Verbalized by the Patient): Straight or Heterosexual Spiritual care concerns: No Exam Day of Procedure 04/11/25 16:12
[2025-04-11 16:14] LABS: Syphilis IgG/IgM Antibody Non-Reactive (Nonreactive)
[2025-04-11 16:27] LABS: HIV 1/2 Ab P24 Ag Result Negative (Negative)
--- NOTE | 2025-04-11 17:11 | PM.IMHP ---
H&P: HPI History of Present Illness Date/Time: 04/11/25 17:11 Chief Complaint: contractions Narrative: Shayy is a 34yo @ 37.6wks who presented with regular, painful contractions since 0900. She was found to be 3cm but then made change to 5cm with +SROM within 2 hours of arrival. She rapidly progressed and received the epidural. She has had regular care and co-management with [facility]. Her is complicated by: - AMA; [facility] referral genetics/anatomy US-- ASA 81mg - elevated BP at first appt; normal baseline PIH labs - Hypothyroidism on meds -- thyroid studies qTri - Anxiety on zoloft - Cmv/Parvo immune - GBS positive Review of Systems Constitutional: Constitutional: Denies chills, Denies fever(s) and Denies headache(s) Eyes: Eyes: Denies change in vision ENT: Denies headache(s) Cardiovascular: Cardiovascular: Denies chest pain and Denies dyspnea Respiratory: Respiratory: Denies dyspnea Gastrointestinal: Gastrointestinal: Reports abdominal pain Genitourinary: Genitourinary: Denies abnormal vaginal bleeding and Denies vaginal discharge Neurologic: Denies headache(s) Psychiatric: Psychiatric: Denies anxiety and Denies depression [facility] Past Medical History Medical History Hypothyroid Healthy female adult Surgical History Surgical History History of cholecystectomy No pertinent past surgical history Family History Family History Grandparent No problems noted. Father Carcinoma of colon Mother Diabetes mellitus Social History Social History Smoking status: Never smoker Alcohol intake: never Substance use: never Substance use type: does not use Do You Feel Safe in your Home?: Yes Lack of Transportation: No Lack of Food: Never True Current Housing: I Have Housing Concerned About Future Housing: Decline to Answer Difficulty Paying Gas/Electric Bills: Decline to Answer Difficulty Paying for Meds: Decline to Answer Currently Unemployed: Decline to Answer Education: Master's Degree or Higher Difficulty w/ Childcare or Family Care: Decline to Answer Living arrangements: with family Occupation/Education: occupation Additional occupation/education comments: rn Gender identity (if verbalized by the patient): Female Sexual Orientation (if Verbalized by the Patient): Straight or Heterosexual Spiritual care concerns: No Meds Home Medications and Allergies Home Medications ?Medication ?Instructions ?Recorded ?Confirmed ?Type levothyroxine 50 mcg tablet 50 mcg PO DAILY 09/10/24 04/07/25 History liothyronine 5 mcg tablet 5 mcg PO DAILY 09/10/24 04/07/25 History sertraline 100 mg tablet 100 mg PO Q24H 10/07/24 04/07/25 History docosahexaenoic acid 200 mg 200 mg PO DAILY 01/26/25 04/07/25 History capsule ( DHA) omeprazole magnesium 2.5 mg oral 10 mg PO DAILY 01/26/25 04/07/25 History suspension,delayed release (Prilosec) Allergies Allergy/AdvReac Type Severity Reaction Status Date / Time No Known Allergies Allergy Verified 04/07/25 10:25 Vital Signs Vital Signs - 24 hr 04/11/25 15:37 04/11/25 15:45 04/11/25 16:00 Pulse Rate 84 93 93 Blood Pressure 127/73 135/74 144/78 H Pulse Oximetry 04/11/25 16:15 04/11/25 16:16 04/11/25 16:20 Pulse Rate 106 H 102 H Blood Pressure 150/120 H 143/86 H Pulse Oximetry 97 97 04/11/25 16:22 04/11/25 16:23 04/11/25 16:24 Pulse Rate 119 H 128 H 109 H Blood Pressure 139/99 H 88/44 L 109/92 H Pulse Oximetry 73 L 04/11/25 16:24 04/11/25 16:25 04/11/25 16:30 Pulse Rate Blood Pressure Pulse Oximetry 76 L 100 100 04/11/25 16:42 04/11/25 16:43 04/11/25 16:45 Pulse Rate 91 121 H Blood Pressure 123/91 H 133/77 Pulse Oximetry 99 04/11/25 16:47 04/11/25 16:52 04/11/25 16:57 Pulse Rate 110 H 91 100 Blood Pressure 148/76 H 136/75 141/64 H Pulse Oximetry 100 100 100 04/11/25 17:00 04/11/25 17:02 04/11/25 17:03 Pulse Rate 106 H 100 Blood Pressure 136/71 138/66 Pulse Oximetry 100 04/11/25 17:06 04/11/25 17:07 04/11/25 17:09 Pulse Rate 93 104 H Blood Pressure 133/55 L 112/87 Pulse Oximetry 100 Exam Const: General: cooperative, no acute distress and obese Nutritional Appearance: obese Orientation/consciousness: patient oriented x3 Resp: Effort & Inspection: normal respiratory effort Cardio: Rate: regular rate GI: GI Palp: No abdominal tenderness : Other: FHT's: 140's/ mod kareen/ + accels/ variable decels - cat 2 TOCO: ctxs q2min Cervix: 9/90/0 Membranes: SROM, forebag ruptured clear on arrival to L&D Presentation: cephalic Skin: General skin exam: normal color Neuro: General: patient oriented x3 Extrem: General: normal to inspection Psych: Appearance: grossly normal Affect: normal affect Attitude: cooperative H&P: Results Labs Labs: Short CBC 04/11/25 Range/Units 15:27 WBC 12.9 H (4.5-10.0) K/mm3 Hgb 11.0 L (12.0-15.0) g/dL Hct 35.2 L (37.0-47.0) % Plt Count 300 (150-375) k/mm3 Assessment and Plan Assessment and plan (1) Active labor at term: Status: Acute (2) GBS (group B streptococcus) infection: Code(s): A49.1 - Streptococcal infection, unspecified site Status: Acute Plan - admitted to L&D in active labor - Ampicillin for GBS + - continuous monitoring - SROM noted; rom+ positive - anesthesia consult
[2025-04-11] MEDS: OXYTOCIN 30 UNITS/NS 500 ML 30 UNITS/500 ML BAG 125 UNITS IV CONT (17:41)
--- NOTE | 2025-04-11 17:58 | P.PCNOB_ITS ---
OB - Vaginal Delivery Note Procedure Delivery date: 04/11/25 Events: Positive Group B Strep (GBS) Delivery monitor: External FHT and External Uterine Route of delivery: Episiotomy description: None Laceration Description: Perineal - 2nd Degree Delivery repair: vicryl Specimen: Yes (placenta) Quantitative Blood Loss (ml): 200 Anesthesia type: Epidural Disposition: Floor Complications: No immediate complications [place] Baby Date of : 04/11/25 Time of : 17:39 Gestational Age by Date: 37 (.6) Infant gender: Female presentation: vertex Placenta delivery description: Expressed Cord Vessel Description: 3 Vessels, Nuchal Cord, Reduced and Delayed Cord Clamping Narrative: Shayy rapidly progressed to complete dilation with strong desire to push. On arrival to Labor and delivery examined her and felt a large forebag that was easily ruptured with clear fluid. She was actually then found to be 9 cm but after a couple contractions was completely dilated. She began pushing with good maternal effort and pushed for approximately 15 minutes. She delivered the head over intact perineum. Nuchal cord was noted but easily reduced. She easily delivered the 's shoulders and body without complication. The infant was immediately placed skin to skin. Her mouth and nose were bulb suctioned but minimal cry a and poor color was noted therefore the umbilical cord was then doubly clamped and cut. The infant was taken over to the warmer with the rail specialist present. A segment of the cord was collected for cord gases. The remaining cord blood was collected for typing. With Pitocin running and gentle downward traction on the cord, the placenta delivered without complication. She was examined and a small second-degree perineal laceration was identified. The perineal laceration was repaired fashion using 2-0 Vicryl and good reapproximation with minimal bleeding was noted. Bimanual massage was performed and good uterine tone with minimal bleeding was noted. Sponge, lap, instrument, and needle counts were correct at the end the procedure. Mom remained in the birthing suite in a stable condition and baby was taken to the nursery due to respiratory distress.
--- NOTE | 2025-04-11 18:12 | S_PTH ---
PATIENT: Shayy Colby LOC: [id number] U#:[id number] AGE/SX: 34/F ROOM: 282 RE04/11/[address]: Saida Adams MD : [id number] BED: 00 DIS: 04/13/2025 SPEC #: [id number] RECD: 04/12/25 07:22 STATUS: GINA REQ #: [id number] BEATRICE: 04/11/25 18:[address]: Saida Adams DEPT: [facility] Surgical RECD BY: Sona Andrew ENTERED: 04/12/25 07:22 SP TYPE: Surgical OTHR DR: UNKNOWN,DOCTOR Tissues: A - Placenta Procedures: Hematoxylin and Eosin Stain Gross and Microscopic Level 5
[2025-04-11] MEDS: ONDANSETRON INJ 4 MG/2 ML VIAL IV PUSH (18:38)
[2025-04-11] MEDS: ACETAMINOPHEN 325 MG TABLET 650 MG PO (19:37)
[2025-04-11] MEDS: WITCH HAZEL 40 PADS 1 PAD TOPICAL (20:33)
[2025-04-11] MEDS: BENZOCAINE 20% AER SPR (*SP) 56 GM CAN 1 SPRAY TOPICAL (20:34)
--- NOTE | 2025-04-11 20:58 | LDADM ---
This patient, Shayy Colby, was admitted to Labor/Delivery/Recovery 106 on 04/11/25 at 13:09. Plans for labor, pain management and were discussed with patient. Patient/family oriented to hospital policies and general routines including ID bracelet, bed and alarms, visiting hours, pain management, procedures, bathroom and other care routines, personal items, smoking policy, room service/diet and guest tray routines, security routines, and visiting hours. Patient/Family are encouraged to report perceived risks to care and to ask questions if they do not understand what they are told or what they should do. See OBIX for further documentation.
--- NOTE | 2025-04-11 21:21 | OBPPTRN ---
Patient transferred to post room #282 via w/c. Support person present. Oriented to unit, room, information board, rooming in, admission packet and security measures. Patient verbalizes understanding.
[2025-04-11] MEDS: IBUPROFEN 600 MG TABLET PO (21:30)
[2025-04-12 01:30] VITALS: BP 108/51; PULSE 74; RESP 18; TEMP 36.8; O2SAT 99
[2025-04-12] MEDS: ACETAMINOPHEN 325 MG TABLET 650 MG PO ×4 (01:30→22:25)
[2025-04-12] MEDS: IBUPROFEN 600 MG TABLET PO ×3 (04:10→22:24)
[2025-04-12 05:23] LABS: Hematocrit 29.5 % (37.0-47.0); Hemoglobin 9.2 g/dL (12.0-15.0)
[2025-04-12] MEDS: SERTRALINE HCL 50 MG TABLET 100 MG PO (06:54)
[2025-04-12] MEDS: LEVOTHYROXINE SODIUM 50 MCG TABLET PO (06:54)
[2025-04-12] MEDS: LIOTHYRONINE SODIUM 5 MCG TABLET PO (06:54)
--- NOTE | 2025-04-12 06:55 | PC.NURSE ---
Met with patient to assess and discuss needs related to feeding. Mother states it is her intention to [exclusively breastfeed]. Baby was in level 2 initially after delivery and was fed with a bottle once and had a pacifier. Mom was also given a nipple shield that she used once when baby was very sleepy. Shayy has a blister on her left nipple. Taught patient to break suction before removing baby from the breast. Her nipple was flattened and we reviewed how to obtain, observe and maintain a deep latch. Mother states the deeper latch feels better. Advised using skin to skin to assist baby with regulating. Mother educated on milk production, supply and demand, and expectations for in the immediate period. Encouraged feeding on demand and feeding durations of 15 minutes or greater. Discussed breast/nipple care with good hand hygiene, signs of a correct latch, listening for swallows and documenting feedings on the feeding sheet. Mother instructed to call for assistance if infant will not feed every 3 hours, if there is discomfort with , or if mother has any other questions or concerns. resources provided including the Mom and Baby Guide and name/number on communication board. Mother verbalized understanding. Updated patient?s primary RN with education provided.?
[2025-04-12 07:30] VITALS: BP 81/57; PULSE 69; RESP 16; TEMP 36.6; O2SAT 98
[2025-04-12] MEDS: IRON SUCROSE COMPLEX 400 MG in SODIUM CHLORIDE 0.9% IV 250 ML 108 MG IVPB (09:19)
--- NOTE | 2025-04-12 09:21 | P.PNOB_ITS ---
OB - PN: Subj Subjective Date/time seen: 04/12/25 09:19 Narrative: PPD#1 Shayy reports doing well today. Her bleeding is obstetrician gynecologist. Her pain is controlled. She is tolerating regular diet, voiding, passing gas, and ambulating without issues. She is breast feeding. OB - PN: Obj Data Labs 04/12/25 04:15 Labs: Laboratory Results - last 24 hr 04/11/25 04/12/25 15:27 04:15 WBC 12.9 H RBC 4.23 Hgb 11.0 L 9.2 L Hct 35.2 L 29.5 L MCV 83.2 MCH 26.0 MCHC 31.3 L RDW 13.1 Plt Count 300 MPV 11.7 H Immature Gran % (Auto) 0.5 Neut % (Auto) 77.8 H Lymph % (Auto) 14.5 L [place] % (Auto) 6.7 Eos % (Auto) 0.3 Baso % (Auto) 0.2 Lymph # (Auto) 1.87 [place] # (Auto) 0.9 H Eos # (Auto) 0.0 Baso # (Auto) 0.0 Abs Immat Gran (auto) 0.07 H Absolute Neuts (auto) 10.1 H Absolute Nucleated RBC 0.000 Nucleated RBC % 0.0 Syphilis IgG/IgM Ab Non-reactive HIV 1&2 Ab/P24 Ag 4thGn Negative Blood Type O Positive Antibody Screen Negative OB - PN A/P Assessment and Plan (1) Normal vaginal delivery of second : Code(s): O80 - Encounter for full-term uncomplicated delivery Status: Acute Plan day: 1 Plan: routine care Comments: - PO pain meds - Regular diet - Ambulation and hydration encouraged - Continue putting baby to breast q2-3hr - Venofer 400mg IV once Time Spent With Patient Time: Total time spent is greater than 50% in coordination of care (as documented) at patient's floor/unit and/or counseling patient: Review of Systems 2 Constitutional: Constitutional: Denies chills, Denies fever(s) and Denies headache(s) Eyes: Eyes: Denies change in vision ENT: Denies dizziness and Denies headache(s) Cardiovascular: Cardiovascular: Denies chest pain, Denies palpitations and Denies dyspnea Respiratory: Respiratory: Denies cough and Denies dyspnea Gastrointestinal: Gastrointestinal: Denies nausea and Denies vomiting Neurologic: Denies dizziness and Denies headache(s) Endocrine: Endocrine: Denies palpitations Exam 2 Const: General: cooperative, comfortable, no acute distress and obese N utritional Appearance: obese Orientation/consciousness: patient oriented x3 Resp: Effort & Inspection: normal respiratory effort Auscultation: clear to auscultation bilaterally Cardio: Rate: regular rate GI: Inspection: non-distended GI Palp: No abdominal tenderness and Yes Soft to palpation Auscultation: normal bowel sounds : Other: fundus firm Skin: General skin exam: normal color Neuro: General: patient oriented x3 Extrem: General: normal to inspection Psych: Appearance: grossly normal Affect: normal affect Attitude: c ooperative
[2025-04-12 11:54] VITALS: BP 141/73; PULSE 89; RESP 20; TEMP 36.9; O2SAT 98
--- NOTE | 2025-04-12 12:45 | PC.NURSE ---
1220: Shayy called out for a latch check. Baby was at the breast on the right side in football hold. Mom states that the latch is painful so we broke the suction and tried to latch again. Mom's nipple was not smashed when baby came off. Baby was sleepy and we were unable to elicit a gape response. Mom is encouraged to allow baby a little more time and then try again. Patient states she will call out when baby is ready to feed. 1245: Shayy called out because baby was awake to feed. We placed baby in football on the right breast again. After a few attempts we got a wide open mouth with a deep latch. Mom states that initial latch is very painful but that it gets somewhat better as baby suckles. Baby needs encouragement to continue suckling. She has some short bursts of suck/swallow but also does some nonnutritive sucking. Mom is worried that baby is not getting enough at the breast and we reviewed milk production and expected behavior immediately . Infant's weight tonight will give us a good indication of how feedings are going. Mom is advised to keep baby as close to the breast as she can throughout the entire feeding so that baby will not slip to just the nipple. Patient is encouraged to keep feeding on demand and to call out for any assistance needed. RN updated.
--- NOTE | 2025-04-12 14:08 | WPDANLDPN2 ---
Anes-Prog Note L&D Date/Time: 04/12/25 14:08 Comfortable throughout: labor and delivery Neuraxial method: epidural Epidural/Spinal procedure site: clean & non-tender Neuro status: Neuro function grossly intact. Cardiovascular status: normal Respiratory status: normal Airway patency: baseline Mental status: baseline Post-Op hydration status: normal Vital Signs: Last Vital Signs Temp 98.4 F 04/12/25 11:54 Pulse 89 04/12/25 11:54 Resp 20 04/12/25 11:54 BP 141/73 H 04/12/25 11:54 Pulse Ox 98 04/12/25 11:54 O2 Del Method Room Air 04/12/25 07:40 Pain score (VAS): 0/10 I/O: Intake & Output 04/11/25 04/12/25 04/12/25 23:59 07:59 15:59 Intake Total 75 Output Total 250 Balance -175 Post-procedural complaints: none Patient feedback: Patient satisfied with anesthetic care.
[2025-04-12 16:00] VITALS: BP 109/65; PULSE 83; RESP 16; TEMP 36.5; O2SAT 97
[2025-04-12 20:00] VITALS: BP 117/65; PULSE 70; RESP 18; TEMP 36.7; O2SAT 100
[2025-04-13 02:39] LABS: Glucose Point of Care 92 mg/dl (65-105)
[2025-04-13 02:40] VITALS: BP 120/80; PULSE 82; RESP 16; TEMP 36.3; O2SAT 100
[2025-04-13] MEDS: LIOTHYRONINE SODIUM 5 MCG TABLET PO (06:56)
[2025-04-13] MEDS: BENZOCAINE 20% AER SPR (*SP) 56 GM CAN 1 SPRAY TOPICAL (06:56)
[2025-04-13] MEDS: WITCH HAZEL 40 PADS 1 PAD TOPICAL (06:56)
[2025-04-13] MEDS: SERTRALINE HCL 50 MG TABLET 100 MG PO (06:56)
[2025-04-13] MEDS: LEVOTHYROXINE SODIUM 50 MCG TABLET PO (06:56)
[2025-04-13] MEDS: IBUPROFEN 600 MG TABLET PO ×2 (06:56→14:46)
[2025-04-13] MEDS: ACETAMINOPHEN 325 MG TABLET 650 MG PO ×2 (06:57→14:47)
--- NOTE | 2025-04-13 07:07 | P.DS_ITS ---
DS: Admitting Diagnosis Discharge Date 04/13/25 Admitting Diagnosis ACtive labor at term GBS positive DS: Discharge Diagnosis Discharge Diagnosis (1) Normal vaginal delivery of second : Code(s): O80 - Encounter for full-term uncomplicated delivery Status: Acute OB - DS: Summary OB Procedures : Ultrasound OB Procedures Intrapartum: Spontaneous Vag Delivery OB Procedures: : Other (venofer 400mg IV once) Peripartum Data Infant Delivery Method: Natural Vaginal Laceration Description: Perineal - 2nd Degree Episiotomy description: None complications: none 1: Gender: Female Disposition of : home Status at Discharge Functional status at discharge: independent ambulation Overall status at discharge: patient is back to baseline Time Spent with Patient Time attestation: Total time spent providing and/or coordinating discharge services: Exam Const: General: cooperative, comfortable and no acute distress Nutritional Appearance: obese Orientation/consciousness: patient oriented x3 Resp: Effort & Inspection: normal respiratory effort Auscultation: clear to auscultation bilaterally Cardio: Rate: regular rate GI: Inspection: non-distended GI Palp: No abdominal tenderness and Yes Soft to palpation Auscultation: normal bowel sounds : Other: fundus firm Skin: General skin exam: normal color Neuro: General: patient oriented x3 Extrem: General: normal to inspection Psych: Appearance: grossly normal Affect: normal affect Attitude: cooperative DS: Data Data Completed and Pending Pending studies at discharge: Pending at discharge 04/11/25 18:12 Surgical [PTH] Routine Labs on day of discharge: Labs from last 24 hours 04/12/25 04/11/25 04:15 15:27 WBC 12.9 H RBC 4.23 Hgb 9.2 L 11.0 L Hct 29.5 L 35.2 L MCV 83.2 MCH 26.0 MCHC 31.3 L RDW 13.1 Plt Count 300 MPV 11.7 H Immature Gran % (Auto) 0.5 Neut % (Auto) 77.8 H Lymph % (Auto) 14.5 L [place] % (Auto) 6.7 Eos % (Auto) 0.3 Baso % (Auto) 0.2 Lymph # (Auto) 1.87 [place] # (Auto) 0.9 H Eos # (Auto) 0.0 Baso # (Auto) 0.0 Abs Immat Gran (auto) 0.07 H Absolute Neuts (auto) 10.1 H Absolute Nucleated RBC 0.000 Nucleated RBC % 0.0 Syphilis IgG/IgM Ab Non-reactive HIV 1&2 Ab/P24 Ag 4thGn Negative Blood Type O Positive Antibody Screen Negative Discharge Plan Discharge Attending physician on discharge: Saida Adams Discharging Clinician: Saida Adams Anticipated Discharge Date/Time: 04/13/25 11:00 Patient Disposition: Home Activity: may shower and pelvic rest Diet: regular Patient Instructions: Vaginal Delivery (DC) Patient Language: Slovak Stand Alone Forms: General Discharge Information Follow-up/Referrals: Saida Adams MD [Physician] - 4 Weeks Discharge Medications: New acetaminophen 325 mg Tablet 650 mg PO Q6H PRN (Reason: Mild Pain (1-3) Or Headache) Qty: 60 0RF docusate sodium 100 mg Capsule 100 mg PO BID PRN (Reason: Constipation) Qty: 90 0RF ibuprofen 600 mg Tablet 600 mg PO Q6H PRN (Reason: Cramping) Qty: 40 0RF Continued DHA 200 mg capsule 200 mg PO DAILY Prilosec 2.5 mg susp,delayed release for recon 10 mg PO DAILY levothyroxine 50 mcg tablet 50 mcg PO DAILY liothyronine 5 mcg tablet 5 mcg PO DAILY sertraline 100 mg tablet 100 mg PO Q24H Date of admission: 04/11/25 13:09 Primary Care Provider: UNKNOWN,DOCTOR Admitting Provider: Saida Adams Attending physician on admission: Saida Adams Condition: Stable
--- NOTE | 2025-04-13 07:26 | PC.NURSE ---
Pt refuses both am Iron and - Pt states she would like to take her own vitamin and that the oral iron upsets her stomach. Education given on oral iron benefits and pt verbalized understanding at this time
[2025-04-13 08:05] VITALS: BP 120/66; PULSE 78; RESP 18; TEMP 36.9; O2SAT 98
--- NOTE | 2025-04-13 10:05 | PC.NURSE ---
[id number]. Met with mom to review discharge information regarding . Mom requested help checking her flange size for her spectra pump. We set it up together and practiced pumping for a few minutes to get mom comfortable using her pump. Instructions given on cleaning, care, usage, that there should be no pain, pumping schedule for milk production, collection, and storage of human milk. Mom stated her infant has been cluster feeding all night and she has sore nipples as a result. Her L breast has a small blister, and her R is reddened. Infant sleeping at this time, so plan was made for mom to call out for infants next feeding to assess her latch and adjust as needed. We also reviewed the use of a nipple shield for pain with feeding. Reviewed standard discharge information with patient including monitoring infant for required output, transition of stools, feeding 8-12 times every 24 hours, milk production, and follow up at [facility] and with manager of procurement in the first week of life. Parents are encouraged to take the feeding log and continue to track feedings and output for the first week . Offered outpatient resources with [facility] referral and Services at [facility]. Patient has the Mom/Baby Guide for further education and reference for common concerns, phone numbers, and guidance on when to call the doctor. A feeding plan was added to the infant?s discharge plan. Patient states that she has no further questions or concerns regarding . Reported to the primary RN & mom to call for infants next latch.
[2025-04-13 12:00] VITALS: BP 126/80; PULSE 92; RESP 18; TEMP 36.9; O2SAT 98
[2025-04-13 12:25] LABS: Glucose Point of Care 99 mg/dl (65-105)
--- NOTE | 2025-04-13 13:19 | PC.NURSE ---
1300. Called to mothers room to assist with . Mom reports tenderness with and on assessment she does have a small blister on the L breast with reddness and on the left breast she has reddness noted. Mom is currently using lanolin, hydrogell pads, and silverettes. Observed and assisted mother latching to the left & right breast in football position. was able to maintain an appropriate latch. Mother complains of nipple pain/discomfort with initial latch on. We worked on ensuring infants lips are flanged out, and infants head is tilted. Mom reports no tenderness with infants feeding after we worked on her latch. Encouraged mother to keep awake and nursing at the breast for as long as baby desires. Mother taught to listen for swallowing during feedings, many swallows heard. Reviewed using the blue feeding sheet to record time and duration of feeding. Mother voiced understanding of the education shared, to call for assistance if the infant does not latch or if there is discomfort with . name/number on communication board. Reported to the Primary RN.?
--- NOTE | 2025-04-13 16:25 | PC.NURSE ---
[id number]. Nipple shield provided to mother due to nipple pain/pain with feeding. Reviewed good handwashing, cleaning the nipple shield and the appropriate way to apply and use as a tool. Discussed with mom the nipple shield precautions, possible complications associated with the risks and benefits. Reviewed practicing with a nipple shield, then without and how to protect the milk supply and production. Mom and baby guide referred to as a resource for outpatient services, community resources and when to call a provider. Mom voiced understanding of the importance of hand expression, nipple stimulation and initiating a pumping schedule if infant continues to nurse with the shield. Reported to the Primary RN.
== END 2025-04-13 19:20 | disposition home or self-care (01) | DRG 807 ==
LOC: ANHLDR 15:22 → ANHOB2 21:25
PROVIDERS: Admitting Provider Obstetrics & Gynecology; Visit Provider Obstetrics & Gynecology
DX: O99.284 Endocrine, nutritional and metabolic diseases complicating childbirth (principal); Z37.0 Single live birth; E03.9 Hypothyroidism, unspecified; O70.1 Second degree perineal laceration during delivery; O99.344 Other mental disorders complicating childbirth; F41.9 Anxiety disorder, unspecified; O99.824 Streptococcus B carrier state complicating childbirth; O69.81X0 Labor and delivery complicated by cord around neck, without compression, not applicable or unspecified; Z3A.37 37 weeks gestation of pregnancy; Z90.49 Acquired absence of other specified parts of digestive tract
CPT/HCPCS: 36415; 82948; 85014; 85018; 85025; 86593; 86703; 86850; 86900; 86901; 88307; A9270; G0432; J0290; J1756; J2405; J2590; J2795; J3010; J7050; J7120